=== PATIENT | female | born 1960 | race Native Hawaiian/Other Pacific Islander ===

== ENCOUNTER 2022-12-31 10:59 | Outpatient (CLI) | payer BC ==
[2022-12-31 11:19] LABS: PLATELET COUNT 281 K/uL (152-353)
[2022-12-31 11:34] LABS: POTASSIUM 4.5 mmol/L (3.6-5.2)
== END 2022-12-31 18:56 | disposition home or self-care (01) ==
LOC: INF 10:59
PROVIDERS: ATTEND Internal Medicine
DX: M27.2 Inflammatory conditions of jaws (principal)
CPT/HCPCS: 36415; 36591; 80048; 82550; 85027; 86140

== ENCOUNTER 2023-01-07 12:08 | Outpatient (CLI) | payer BC ==
[2023-01-07 12:26] LABS: PLATELET COUNT 273 K/uL (152-353)
[2023-01-07 12:32] LABS: POTASSIUM 4.4 mmol/L (3.6-5.2)
== END 2023-01-07 19:21 | disposition home or self-care (01) ==
LOC: INF 12:08
PROVIDERS: ATTEND Internal Medicine
DX: M27.2 Inflammatory conditions of jaws (principal)
CPT/HCPCS: 36415; 36591; 80048; 82553; 85027; 86140; 99211

== ENCOUNTER 2023-01-21 13:09 | Outpatient (CLI) | payer BC ==
[2023-01-21 14:33] LABS: PLATELET COUNT 259 K/uL (152-353)
[2023-01-21 14:47] LABS: POTASSIUM 4.4 mmol/L (3.6-5.2)
== END 2023-01-21 18:55 | disposition home or self-care (01) ==
LOC: INF 13:09
PROVIDERS: ATTEND Internal Medicine
DX: M27.2 Inflammatory conditions of jaws (principal)
CPT/HCPCS: 36591; 80048; 82550; 85027; 86140; 99211

== ENCOUNTER 2023-01-28 11:37 | Outpatient (CLI) | payer BC ==
[2023-01-28 11:54] LABS: PLATELET COUNT 282 K/uL (152-353)
== END 2023-01-28 20:08 | disposition home or self-care (01) ==
LOC: INF 11:37
PROVIDERS: ATTEND Internal Medicine
DX: M27.2 Inflammatory conditions of jaws (principal)
CPT/HCPCS: 36415; 80048; 82550; 85027; 86140

== ENCOUNTER 2023-02-04 10:53 | Outpatient (CLI) | payer BC ==
[2023-02-04 11:29] LABS: PLATELET COUNT 288 K/uL (152-353)
[2023-02-04 11:44] LABS: POTASSIUM 4.8 mmol/L (3.6-5.2)
== END 2023-02-04 19:01 | disposition home or self-care (01) ==
LOC: LABW 10:53
PROVIDERS: ATTEND Internal Medicine Infectious Disease
DX: M27.2 Inflammatory conditions of jaws (principal)
CPT/HCPCS: 80048; 82550; 85027; 86140

== ENCOUNTER 2023-02-18 12:10 | Outpatient (CLI) | payer BC ==
[2023-02-18 12:27] LABS: PLATELET COUNT 273 K/uL (152-353)
== END 2023-02-18 19:59 | disposition home or self-care (01) ==
LOC: INF 12:10
PROVIDERS: ATTEND Internal Medicine
DX: A42.9 Actinomycosis, unspecified (principal); M27.2 Inflammatory conditions of jaws
CPT/HCPCS: 36591; 80048; 82550; 85027; 86140; 99211

== ENCOUNTER 2023-02-25 11:05 | Outpatient (CLI) | payer BC ==
[2023-02-25 11:30] LABS: PLATELET COUNT 260 K/uL (152-353)
[2023-02-25 11:45] LABS: POTASSIUM 3.8 mmol/L (3.6-5.2)
== END 2023-02-25 21:03 | disposition home or self-care (01) ==
LOC: INF 11:05
PROVIDERS: ATTEND Internal Medicine Endocrinology, Diabetes & Metabolism
DX: A42.9 Actinomycosis, unspecified (principal); M27.2 Inflammatory conditions of jaws
CPT/HCPCS: 36591; 80048; 85027; 86140; 99211

== ENCOUNTER 2023-02-26 13:05 | Outpatient (CLI) | payer BC | END 2023-02-26 19:50 | disposition home or self-care (01) | LOC: LAB 13:05 | PROVIDERS: ATTEND Internal Medicine Infectious Disease | DX: R78.81 Bacteremia (principal); M27.2 Inflammatory conditions of jaws | CPT/HCPCS: 82550 ==

== ENCOUNTER 2023-03-04 12:30 | Outpatient (CLI) | payer BC ==
[2023-03-04 13:18] LABS: PLATELET COUNT 302 K/uL (152-353)
[2023-03-04 13:23] LABS: POTASSIUM 4.3 mmol/L (3.6-5.2)
== END 2023-03-04 19:08 | disposition home or self-care (01) ==
LOC: INF 12:30
PROVIDERS: ATTEND Internal Medicine
DX: R78.81 Bacteremia (principal); M27.2 Inflammatory conditions of jaws
CPT/HCPCS: 36591; 80048; 82550; 85027; 86140; 99211

== ENCOUNTER 2023-03-10 11:11 | Outpatient (CLI) | payer BC ==
[2023-03-10 12:58] LABS: PLATELET COUNT 295 K/uL (152-353)
[2023-03-10 13:05] LABS: POTASSIUM 3.9 mmol/L (3.6-5.2)
== END 2023-03-10 20:24 | disposition home or self-care (01) ==
LOC: INF 11:11
PROVIDERS: ATTEND Internal Medicine Endocrinology, Diabetes & Metabolism
DX: A42.9 Actinomycosis, unspecified (principal); M27.2 Inflammatory conditions of jaws
CPT/HCPCS: 36591; 80048; 85027; 86140; 99211

== ENCOUNTER 2023-03-11 15:52 | Outpatient (CLI) | payer BC | END 2023-03-11 19:53 | disposition home or self-care (01) | LOC: LAB 15:52 | PROVIDERS: ATTEND Internal Medicine Infectious Disease | DX: R78.81 Bacteremia (principal); M27.2 Inflammatory conditions of jaws | CPT/HCPCS: 82550 ==

== ENCOUNTER 2023-03-18 11:14 | Outpatient (CLI) | payer BC ==
[2023-03-18 11:58] LABS: PLATELET COUNT 244 K/uL (152-353)
[2023-03-18 12:03] LABS: POTASSIUM 4.2 mmol/L (3.6-5.2)
== END 2023-03-18 18:58 | disposition home or self-care (01) ==
LOC: INF 11:14
PROVIDERS: ATTEND Internal Medicine Endocrinology, Diabetes & Metabolism
DX: A42.9 Actinomycosis, unspecified (principal); M27.2 Inflammatory conditions of jaws
CPT/HCPCS: 36591; 80048; 82550; 85027; 86140; 99211

== ENCOUNTER 2023-03-31 12:04 | Outpatient (CLI) | payer BC ==
[2023-03-31 12:47] LABS: POTASSIUM 4.3 mmol/L (3.6-5.2)
[2023-03-31 12:48] LABS: PLATELET COUNT 260 K/uL (152-353)
== END 2023-03-31 19:05 | disposition home or self-care (01) ==
LOC: INF 12:04
PROVIDERS: ATTEND Internal Medicine
DX: A42.9 Actinomycosis, unspecified (principal); M27.2 Inflammatory conditions of jaws
CPT/HCPCS: 36415; 36591; 80048; 82550; 85027; 86140; 99211

== ENCOUNTER 2023-04-07 11:55 | Outpatient (CLI) | payer BC ==
[2023-04-07 12:25] LABS: PLATELET COUNT 265 K/uL (152-353)
[2023-04-07 12:50] LABS: POTASSIUM 4.2 mmol/L (3.6-5.2)
== END 2023-04-07 22:05 | disposition home or self-care (01) ==
LOC: LABW 11:55 → INF 11:55
PROVIDERS: ATTEND Internal Medicine Infectious Disease
DX: R78.81 Bacteremia (principal)
CPT/HCPCS: 36415; 36591; 80048; 82550; 85027; 86140; 99211

== ENCOUNTER 2023-04-14 11:17 | Outpatient (CLI) | payer BC ==
[2023-04-14 12:14] LABS: PLATELET COUNT 227 K/uL (152-353)
[2023-04-14 12:22] LABS: POTASSIUM 3.7 mmol/L (3.6-5.2)
== END 2023-04-14 18:59 | disposition home or self-care (01) ==
LOC: INF 11:17
PROVIDERS: ATTEND Internal Medicine
DX: A42.9 Actinomycosis, unspecified (principal); M27.2 Inflammatory conditions of jaws
CPT/HCPCS: 36415; 36591; 80048; 82550; 85027; 86140; 99211